=== PATIENT | female | born 1945 | race Caucasian/White ===

== ENCOUNTER → 2016-06-02 07:49 | Outpatient (CLI) | payer MEDICARE, OTHER ==
[2013-11-05 07:48] VITALS: BMI 28.9
[~2016-06-02 07:49] MED LIST: BAYER CHEWABLE81 MG PO; FISH OIL 1,0001 CA1 PO; HYDROCHLOROTHIA25 MG PO; PLAVIX75 MG PO; SYNTHROID100 MCG PO; ZOCOR20 MG PO
== END ==
LOC: D.MRI 07:49
DX: M25.562 Pain in left knee (principal)

== ENCOUNTER 2017-05-18 07:35 | Outpatient (CLI) | payer MEDICARE, OTHER ==
[~2017-05-18] VITALS: Ht 154.9 cm; Wt 65.9 kg
--- NOTE | ~2017-05-18 | HEMODYNAMI ---
PATIENT:SUZANNE MEEKS MEDICAL RECORD: [id number] : 41 LOCATION:[facility] ADMISSION DATE: 05/18/17 Generatedon:05/18/201710:05 Patient name: SUZANNE MEEKS Patient #: [id number] SSN: : 1945 Date of study: 05/18/2017 Page: Of Hemodynamic Procedure Report Patient Data Patient Demographics Procedure consent was obtained First Name: SUZANNE Gender: Female Last Name: JEANNA : 1945 [facility] Initial: J Age: 71 year(s) Patient #: [id number] Race: Unknown Additional ID: [id number] Contact details [address]: [address] [place] [address] State: [place] City: [place] Zip code: [address] Past Medical History Allergies Allergen Reaction Date Comments Reported Other allergy 05/18/2017 Statins Admission Admission Data Admission Date: 05/18/2017 Admission Time: 7:35 Procedure Procedure Types Cath Procedure Diagnostic Procedure Sedation Charges Moderate Sedation up to 30 minutes Peripheral Cath Diagnostic Procedure Cath Peripheral Iycne-Taczfbc-Hxj-Off Peripheral vascular Intervention Atherectomy Atherectomy Fem/Pop w/Plasty Procedure Description Procedure Date Procedure Date: 05/18/2017 Procedure Start Time: 9:31 Procedure End Time: 10:04 Procedure Staff Name Function King Gonzalez MD Performing Physician Nadja Wadsworth RT Monitor Seth Mauricio RN Nurse Sarah Pack RT Scrub Procedure Data Cath Procedure Fluoroscopy Diagnostic fluoroscopy Total fluoroscopy Time: 7.6 time: 7.6 min min Diagnostic fluoroscopy Total fluoroscopy dose: 242 dose: 242 mGy mGy Contrast Material Contrast Material Type Amount (ml) Isovue 300 159 Entry Location Entry Primary Successful Side Size Upsize Upsize Entry Closure Succes sful Closure Location (Fr) 1 (Fr) 2 (Fr) Remarks Device Remarks Femoral Right 5 Fr 7 Fr 7 Fr Exoseal artery Long Short Estimated blood loss: 10 ml Diagnostic catheters Device Type Used For End Catheter Placement DIAGNOSTIC UF 5Fr Procedure catheter ([id number]) Procedure Complications No complications Procedure Medications Medication Administration Route Dosage Oxygen NC 2 l/min Heparin Flush Bag added to field 2 bags (1000units/500ml NS) 0.9% NaCl I.V. 100 ml/hr Fentanyl I.V. 50 mcg Versed I.V. 1 mg Fentanyl I.V. 50 mcg Versed I.V. 1 mg Heparin Bolus I.V. 5000 units Integrilin (Bolus I.V. 6.2 ml 2mg/ml) Integrilin (Bolus wasted 3.8 ml 2mg/ml) Plavix P.O. 600 mg Hemodynamics Rest Heart Rate: 26 (bpm) Snapshots Pre Cath Intra NCS Post Cath Vital Signs Time Heart Resp SPO2 etCO2 NIBP (mmHg) Rhythm Pain Sedation Rate (ipm) (%) (mmHg) Status Level (bpm) 9:06:57 85 16 99 0 174/91(138) NSR 0 (11) 10(A) , No pain 9:11:17 86 15 99 0 180/95(143) NSR 0 (11) 10(A) , No pain 9:15:42 84 19 99 37.2 184/90(121) NSR 0 (11) 10(A) , No pain 9:20:00 89 16 90 35.8 169/94(128) NSR 0 (11) 10(A) , No pain 9:24:24 89 16 90 36.5 169/84(119) NSR 0 (11) 10(A) , No pain 9:28:42 87 16 100 36.5 156/89(125) NSR 0 (11) 10(A) , No pain 9:33:02 91 15 100 37.3 158/79(117) NSR 0 (11) 9(A) , No pain 9:37:18 88 16 100 39.5 159/84(130) NSR 0 (11) 9(A) , No pain 9:41:34 87 16 100 37.2 142/79(124) NSR 0 (11) 9(A) , No pain 9:45:46 90 15 100 36.5 157/82(113) NSR 0 (11) 9(A) , No pain 9:50:00 89 16 100 31.3 145/85(121) NSR 0 (11) 9(A) , No pain 9:54:14 86 16 100 37.2 158/82(123) NSR 0 (11) 9(A) , No pain 9:58:34 88 17 100 37.2 152/82(123) NSR 0 (11) 9(A) , No pain 10:02:50 84 16 100 36.5 160/83(129) NSR 0 (11) 9(A) , No pain Medications Time Medication Route Dose Verified Delivered Reason Notes Effectiveness by by 9:08:51 Oxygen NC 2 King Ann Per physician l/min Lisa Mauricio RN 9:08:58 Heparin Flush added 2 King Ann used for Bag to bags Lisa Mauricio RN procedure (1000units/500ml field NS) 9:09:06 0.9% NaCl I.V. 100 King Ann Per physician ml/hr Lisa Mauricio RN 9:26:12 Fentanyl I.V. 50 King Ann for sedation mcg Lisa Mauricio RN 9:26:18 Versed I.V. 1 mg King Ann for sedation Lisa Mauricio RN 9:28:58 Fentanyl I.V. 50 King Ann for sedation mcg Lisa Mauricio RN 9:29:03 Versed I.V. 1 mg King Ann for sedation Lisa Mauricio RN 9:37:55 Heparin Bolus I.V. 5000 King Ann for units Lisa Mauricio RN anticoagulation 9:38:08 Integrilin I.V. 6.2 King Ann for (Bolus 2mg/ml) ml Lisa Mauricio RN antiplatelet therapy 10:02:40 Integrilin wasted 3.8 King Ann for (Bolus 2mg/ml) ml Lisa Mauricio RN antiplatelet therapy 10:02:49 Plavix P.O. 600 King Ann for mg Lisa Mauricio RN antiplatelet therapy Procedure Log Time Note 8:51:27 Seth Mauricio RN sent for patient. Start room use. 8:55:53 Diagnostic Cath Status : Elective 8:56:28 Time tracking: Regular hours 8:56:32 Plan of Care:Hemodynamics will remain stable., Cardiac rhythm will remain stable., Comfort level will be maintained., Respiratory function will remain adequate., Patient/ family verbilizes understanding of procedure., Procedure tolerated without complication., Recovers from procedure without complications.. 9:05:49 Vital chart was started 9:06:14 Patient received from Pre/Post Procedure Room to CCL 2 Alert and oriented. Tansferred to table in Supine position. 9:06:15 Warm blankets applied, and carla hugger turned on for patient comfort. 9:06:15 Correct patient and procedure confirmed by team. 9:06:17 Signed procedure consent form obtained from patient. 9:06:18 ECG and BP/O2 sat monitors applied to patient. 9:06:19 Baseline sample Acquired. 9:06:20 Baseline sample Acquired. 9:06:26 Baseline sample Acquired. 9:06:30 Rhythm: sinus rhythm 9:06:32 Full Disclosure recording started 9:06:52 H&P Date Dictated: 05/07/2017 Within 30 days and on chart., H&P Addendum completed by physician on day of procedure. (MUST COMPLETE FOR ALL OUTPATIENTS). 9:06:57 Pre-procedure instructions explained to patient. 9:07:01 Pre-op teaching completed and patient verbalized understanding. 9:07:03 Family in waiting room. 9:07:05 Patient NPO since Midnight. 9:07:18 Patient allergic to Other allergyStatins 9:07:24 Is the patient allergic to Iodine/contrast media? No. 9:07:26 Was the patient premedicated? Yes 9:07:27 Is patient on blood thinner?No 9:07:29 Patient diabetic? No. 9:07:33 Snore? Yes 9:07:35 Sleep apnea? No 9:07:49 Dentures? Yes in tight 9:07:54 Patient pain scale 0/10 ?. 9:08:03 IV patent on arrival in left forearm with 0.9% NaCl at KVO. 9:08:08 Lab results completed and on chart. 9:08:14 Bilateral groins area was prepped with chlora-prep and draped in sterile fashion 9:08:16 Alarms reviewed by R. N. 9:08:17 Sharps counted by scrub and verified by R.N. 9:08:18 Physician paged 9:08:51 Oxygen 2 l/min NC was administered by Seth Mauricio RN; Per physician; 9:08:58 Heparin Flush Bag (1000units/500ml NS) 2 bags added to field was administered by Seth Mauricio RN; used for procedure; 9:09:06 0.9% NaCl 100 ml/hr I.V. was administered by Seth Mauricio RN; Per physician; 9::56 Physician arrived 9::57 --------ALL STOP TIME OUT------ 9::58 Final Timeout: patient, procedure, and site verified with staff and physician. All members of the team are in agreement. 9::03 Bilateral groins site verified by team. 9::07 Physical assessment completed. ASA score P 2 - A patient with mild systemic disease as per King Gonzalez MD. 9:26:11 Sedation plan: IV Moderate Sedation Medication:Versed, Fentanyl 9:26:12 Fentanyl 50 mcg I.V. was administered by Seth Mauricio RN; for sedation; 9::18 Versed 1 mg I.V. was administered by Seth Mauricio RN; for sedation; 9::58 Fentanyl 50 mcg I.V. was administered by Seth Mauricio RN; for sedation; 9:29:03 Versed 1 mg I.V. was administered by Seth Mauricio RN; for sedation; 9:29:52 Procedure started. 9:30:00 Use device set Femoral Dx 9:30:13 ACIST Syringe (80769) opened to sterile field. 9:30:13 Bag Decanter (2002S) opened to sterile field. 9:30:14 Medline Cath Pack ([id number]) opened to sterile field. 9:30:15 SHEATH 5FR [place] (SMN792) opened to sterile field. 9:30:16 DIAGNOSTIC WIRE .035 260cm J wire (291197) opened to sterile field. 9:30:17 ACIST Hand Control (41395) opened to sterile field. 9:30:17 ACIST Manifold (02128) opened to sterile field. 9:30:25 Tegaderm 4 x 4 (1626W) opened to sterile field. 9:30:26 PERCUTANEOUS ENTRY 19GA needle opened to sterile field. 9:31:27 Local anesthetic to right femoral artery with Lidocaine 2% by King Gonzalez MD.INITIAL ACCESS ONLY 9:31:48 A 5 Fr sheath was inserted into the Right Femoral artery 9:33:00 5fr UF inserted over the wire 9:33:02 Abdominal angiogram w/ runoff was performed. 9:33:05 Right leg runoff performed. 9:33:07 Left leg runoff performed. 9:33:16 A DIAGNOSTIC UF 5Fr catheter ([id number]) was advanced over the wire and used for Procedure. 9:37:55 Heparin Bolus 5000 units I.V. was administered by Seth Mauricio RN; for anticoagulation; 9:38:08 Integrilin (Bolus 2mg/ml) 6.2 ml I.V. was administered by Seth Mauricio RN; for antiplatelet therapy; 9:40:40 SHEATH 7FR [place] (UMX407) opened to sterile field. 9:40:45 SHEATH 7FR Destination (RSR04) opened to sterile field. 9:40:56 Sheath upsized to a 7 Fr Long. 9:41:00 GLIDE WIRE Super Stiff Angled 260cm (GP6396) opened to sterile field. 9:41:50 INFLATOR Merit BasixCompak (HX8504) opened to sterile field. 9:43:09 The LASER Turbo-Power 2.0 atherectomy catheter (658604) was advanced and then removed because 9:43:48 Multiple passes through left SFA. 9:48:49 Laser removed 9:49:01 CHOICE PT Extra Support J 300cm guide wire ([id number]) opened to sterile field. 9:54:23 Inflation number: 1 A Stellarex 6x120 drug coated balloon was prepped and advanced across the Mid Superficial Femoral, Left, then inflated to 13 SRUTHI for 2:30 (min:sec). 9:54:27 Timer 1 started at 9:51 AM, stopped at 9:54 AM, duration 00:02:47 sec. 9:57:10 Inflation number: 2 The Stellarex 6x120 drug coated balloon was reinflated across the Mid Superficial Femoral, Left, to 13 SRUTHI for 2:30 (min:sec). 9:57:12 Timer 1 started at 9:54 AM, stopped at 9:57 AM, duration 00:02:41 sec. 9:57:15 Timer 1 started at 9:57 AM, stopped at 9:57 AM, duration 00:00:01 sec. 9:58:21 Laser pass to Left Superficial Femoral with Fluence of 45 and Rate of 45. 9:58:30 Laser total pulses delivered: 3891 9:58:37 Laser total treatment time: 2 minutes 33 seconds 9:59:54 Balloon removed over the wire. 9:59:55 Wire removed. 10:00:10 EXOSEAL 7Fr (EX700) opened to sterile field. 10:00:30 Sheath upsized to a 7 Fr Short. 10:00:30 Sheath removed intact; hemostasis achieved with Exoseal to the Right Femoral artery. 10:00:34 Procedure ended.(Physican Out) 10:01:18 Fluoroscopy time 07.60 minutes. 10::34 Fluoroscopy dose: 242 mGy 10::34 Flurop Dose total: 242 10:01:39 Contrast amount:Isovue 300 159ml. 10:01:40 Sharps counted by scrub and verified by R.N. 10:01:51 Insertion/operative site no bleeding no hematoma. 10:02:02 Post-op/insertion site Right Femoral artery dressed using a 4 x 4 and Tegaderm. 10:02:04 Post Procedure Pulses reassessed and unchanged 10:02:08 Post-procedure physical assessment completed. ASA score P 2 - A patient with mild systemic disease as per King Gonzalez MD. 10:02:14 Post procedure rhythm: sinus rhythm 10:02:17 Estimated blood loss: 10 ml 10:02:19 Post procedure instruction explained to patient.Patient verbalizes understanding. 10:02:40 Integrilin (Bolus 2mg/ml) 3.8 ml wasted was administered by Seth Mauricio RN; for antiplatelet therapy; 10:02:49 Plavix 600 mg P.O. was administered by Seth Mauricio RN; for antiplatelet therapy; 10:03:30 Procedure type changed to Cath procedure, Diagnostic procedure, Sedation Charges, Moderate Sedation up to 30 minutes, Peripheral Cath Diagnostic Procedure, Cath Peripheral, Cznnc-Onvlbqr-Hes-Off, Peripheral vascular Intervention, Atherectomy, Atherectomy Fem/Pop w/Plasty 10:03:32 Procedure and supply charges have been captured, reviewed, submitted and are correct. 10:04:15 Procedure Complication : No complications 10:04:17 Vital chart was stopped 10:04:18 See physician's report for complete and final results. 10:04:23 Report given to Pre/Post Procedure Room. 10:04:25 Patient transfered to Pre/Post Procedure Room with Stretcher. 10:04:27 Procedure ended. 10:04:27 Full Disclosure recording stopped 10:04:32 End room use (Document Last) 10:05:11 ACC-PCI Only Patient was given prescriptions, or instructed by King Gonzalez MD to start/continue the following medications upon discharge: Plavix Intervention Summary Intervention Notes Time ActionType Lesion and Equipment Action# Pressure Duration Attributes Used 9:43:09 Discard LASER Balloon Turbo-Power 2.0 atherectomy catheter (090755) 9:54:23 Inflate Mid Stellarex 1 13 02:30 balloon Superficial 6x120 drug Femoral, coated Left balloon 9:57:10 Reinflate Mid Stellarex 2 13 02:30 balloon Superficial 6x120 drug Femoral, coated Left balloon Device Usage Item Name Manufacture Quantity Catalog Number Hospital Part Current Min imal Lot# / Charge Number Stock Stock Serial# Code ACIST Acist 1 56916 315291 553793 204623 20 Syringe Medical (83110) Systems Inc Bag Decanter Microtek 1 2001S 066218 48221 694807 5 (2001S) Medical Inc. Medline Cath Cardinal 1 [id number] 651537 75911 512936 5 Pack Health ([id number]) SHEATH 5FR Terumo 1 RVJ039 262598 980580 879045 40 [place] (HLP073) DIAGNOSTIC St Tiago 1 923010 609592 415670 187982 30 WIRE .035 260cm J wire (307439) ACIST Hand Acist 1 48128 035752 949484 121344 5 Control Medical (05089) Systems Inc ACIST Acist 1 81818 893839 477373 741442 5 Manifold Medical (08780) Systems Inc Tegaderm 4 x 3M 1 1626W 084240 983889 728758 5 4 (1626W) PERCUTANEOUS Cook Medical 1 B42452 368186 184722 5 ENTRY 19GA needle DIAGNOSTIC Cardinal 1 [id number] 881451 978828 193096 10 UF 5Fr Health catheter (616505I3) SHEATH 7FR Terumo 1 DAQ731 323426 039984 907216 5 [place] (BYG879) SHEATH 7FR Terumo 1 RSR04 818073 444526 917926 5 Destination (RSR04) GLIDE WIRE Terumo 1 VP8772 285626 228066 879149 5 Super Stiff Angled 260cm (FS6650) INFLATOR Merit 1 VA0122 425407 467646 762256 15 [facility] Medical BasixCompak (IA0807) LASER Ivet 1 420-050 479044 2894370 197712 5 [id number] 3DR Laboratories 2.0 (705707) atherectomy catheter (799721) CHOICE PT [place] 1 [id number] 294232 820968 200348 5 Extra Scientific Support J 300cm guide wire (1328147W7) Stellarex Unknown 1 0 0 6x120 drug coated balloon EXOSEAL 7Fr Cardinal 1 EX700 106294 190143 637668 5 (EX700) Health Signature Audit [place] Stage Time Signature Unsigned Intra-Procedure 05/18/2017 Nadja Wadsworth 10:05:26 AM RT(R) Signatures Monitor : Nadja Wadsworth Signature : RT Date : Time : [place] [address] [place] [address]
--- NOTE | ~2017-05-18 | OP ---
PATIENT NAME: SUZANNE MEEKS MEDICAL RECORD: [id number] :41 LOCATION:D.CAT ADMISSION DATE: SURGEON: RIAN SALAS MD DATE OF OPERATION: 05/18/2017 PROCEDURES: 1. Laser atherectomy left leg. 2. DRIER, left SFA. 3. Aortofemoral runoff. 4. Abdominal aortography. INDICATION: Claudication and peripheral vascular disease. PROCEDURE IN DETAIL: After informed consent was obtained and after detailed explanation of risks, benefits as well as alternative therapies, the patient elected to proceed with angiogram and angioplasty. The right femoral area was prepped and draped in normal sterile fashion. Right femoral artery was cannulated via modified Seldinger technique with placement of a 7-Eritrean knrbzv-mre-osyw sheath. All catheters exchanged through this sheath. FINDINGS: Abdominal aortography was performed. The catheter was pulled down for aortofemoral runoff. Abdominal aortography reveals no significant abdominal aortic disease. No dissection or aneurysm formation. RIGHT LEG: A. Iliac: The common internal and external iliacs have mild irregularities, but no flow-limiting stenosis. B. Femoral system: The common and deep femoral are widely patent. Superficial femoral has multiple areas of 80+ percent stenosis throughout the mid vessel. C. Popliteal and infrapopliteal vessels are widely patent with three-vessel runoff to the foot, although mildly diffusely diseased. LEFT LEG: A. Iliac: The common internal and external iliacs have mild irregularities, but no flow-limiting stenosis. B. Femoral system: The common and deep femoral are widely patent. Superficial femoral has previously placed stents. There is up to 80% in-stent restenosis in areas throughout the stented region. C. Popliteal and infrapopliteal vessels are patent, 3-vessel runoff to the foot is preserved, although mildly diffusely diseased. Laser atherectomy, DRIER of the left leg: Laser atherectomy was performed with a 2.0 laser peripheral catheter, multiple passes were made. We then used a Stellarex 6 x 120 drug-eluting balloon for PTCA and drug elution of this area. IMPRESSION: Successful DRIER with drug-eluting balloon and later atherectomy for in-stent restenosis of the left SFA going from multiple areas of 80% stenosis to 0% residual stenosis. TRANSINT:[id number] Voice Confirmation ID: [id number] DOCUMENT ID: [id number] OPERATIVE REPORT [id number] SUZANNE MEEKS, RIAN JONES at 1153 CC: [id number] DICTATION DATE: 05/18/17 1004 APPLICATION SECURITY DEVELOPER: 05/18/17 1026 [address] [place] [id number] [place] [id number]
[2017-05-18 07:43] VITALS: BP 166/74; Ht 154.9 cm; Wt 65.9 kg
[2017-05-18] MEDS ORDERED: PRAVACHOL20 MG PO (07:50)
[2017-05-18] MEDS ORDERED: NIASPAN500 MG PO (07:51)
[2017-05-18] MEDS ORDERED: CALCIUM 600+D T1 TA1 PO (07:51)
[2017-05-18 07:52] LABS: BASOPHILS 0.4 % (0-2); EOSINOPHILS 2.2 % (0-7); HEMATOCRIT 43.1 % (36.0-48.0); HEMOGLOBIN 14.3 g/dL (12-16); IMMATURE GRANULOCYTES 0.1 % (0-5); LYMPHOCYTES 20.4 % (15-50); MCH 30.2 pg (26.0-34.0); MCHC 33.2 g/dL (31.0-37.0); MCV 90.9 fL (80.0-100.0); MEAN PLATELET VOLUME 12.1 fL (7.4-10.4); MONOCYTES 10.8 % (2-11); NEUTROPHILS 66.1 % (40-80); PLATELET COUNT 197 10x3/uL (130-400); RBC 4.74 10x6/uL (4.00-5.40); RDW 13.2 % (11.5-14.5); WBC 7.2 10x3/uL (4.8-10.8)
[2017-05-18 08:08] LABS: ANION GAP 9.8 mmol/L (8-16); CALCIUM 9.3 mg/dL (8.5-10.1); CARBON DIOXIDE 30.6 mmol/L (21.0-32.0); CREATININE - SERUM 0.8 mg/dL (0.6-1.3); POTASSIUM - SERUM 3.4 mmol/L (3.5-5.1)
[2017-05-18] MEDS ORDERED: PLAVIX75 MG PO (13:08)
== END 2017-05-18 14:05 | disposition home or self-care (01) ==
LOC: D.CATH 07:35
PROVIDERS: Internal Medicine Interventional Cardiology
DX: I70.219 Atherosclerosis of native arteries of extremities with intermittent claudication, unspecified extremity (principal); I25.10 Atherosclerotic heart disease of native coronary artery without angina pectoris; I10 Essential (primary) hypertension; Z01.812 Encounter for preprocedural laboratory examination

== ENCOUNTER 2020-05-11 06:57 | Day surgery (SDC) | payer MEDICARE, OTHER ==
[~2020-05-11] VITALS: Ht 154.9 cm; Wt 65.9 kg
--- NOTE | ~2020-05-11 | HEMODYNAMI ---
PATIENT:SUZANNE MEEKS MEDICAL RECORD: [id number] : 41 LOCATION:D.CAT ADMISSION DATE: 05/11/20 Generatedon:110:41 Patient name: SUZANNE MEEKS Patient #: [id number] SSN: [id number] : 1945 Date of study: 05/11/2020 Page: Of Hemodynamic Procedure Report Patient Data Patient Demographics Procedure consent was obtained First Name: SUZANNE Gender: Female Last Name: JEANNA : 1945 Middle Initial: J Age: 74 year(s) Patient #: [id number] Race: SSN: [id number] Additional ID: [id number] Contact details [address]: [address] [place] [address] State: [place] City: [place] Zip code: [address] Past Medical History Allergies Allergen Reaction Date Comments Reported Other allergy 05/18/2017 Statins Other allergy 02/24/2020 STATINS Other allergy 05/11/2020 STATINS Admission Admission Data Admission Date: 05/11/2020 Admission Time: 6:57 Arrival Date: 05/11/2020 Arrival Time: 0:00 Admit Source: Other Insurance Payor: Medicare [facility] #: [id number] Height (in.): 61.5 BSA: 1.68 (m2) Height (cm.): 156.21 BMI: 27.88 (kg/m2) Weight (lbs.): 150 Weight (kg.): 68.04 Lab Results Lab Result Date: 05/11/2020 Lab Result Time: 0:00 Biochemistry Name Units Result Min Max BUN mg/dl 16 --(---*)-- 7 18 Creatinine mg/dl 0.9 --(-*--)-- 0.6 1.3 eGFR ml/min 64.51279 *-(----)-- 90 120 NONAFRICAN Procedure Procedure Types Cath Procedure Sedation Charges Moderate Sedation 55-69 minutes Peripheral Cath Diagnostic Procedure Peripheral vascular Intervention Hemochron ACT Lithotripsy Litho W Gardener Procedure Description Procedure Date Procedure Date: 05/11/2020 Procedure Start Time: 9:41 Procedure End Time: 10:39 Procedure Staff Name Function Eleazar Castillo MD Performing Physician Savanna Alvarez RT Monitor Sarah Pack RT Scrub Marek Al RN Nurse Procedure Data Cath Procedure Fluoroscopy Diagnostic fluoroscopy Total fluoroscopy Time: time: 10.6 min 10.6 min Diagnostic fluoroscopy Total fluoroscopy dose: 195 dose: 195 mGy mGy Contrast Material Contrast Material Type Amount (ml) Isovue 370 76 Entry Location Entry Primary Successful Side Size Upsize Upsize Entry Closure Succes sful Closure Location (Fr) 1 (Fr) 2 (Fr) Remarks Device Remarks Femoral Right 6 Fr 6 Fr 6 Fr Exoseal artery Short Long Short Estimated blood loss: 10 ml Diagnostic catheters Device Type Used For End Catheter Placement DIAGNOSTIC IM 5Fr Procedure catheter ([id number]) Procedure Complications No complications Procedure Medications Medication Administration Route Dosage 0.9% NaCl I.V. 100 ml/hr Oxygen etCO2 Nasal cannula 2 l/min Heparin Flush Bag added to field 2 bags (1000units/500ml NS) Lidocaine 2% added to field 20 Versed I.V. 2 mg Fentanyl I.V. 50 mcg Fentanyl I.V. 50 mcg Versed I.V. 1 mg Heparin Bolus I.V. 6000 units Versed I.V. 1 mg Versed I.V. 1 mg Plavix P.O. 600 mg Hemodynamics Rest BSA: 1.68 (m2) O2 Consumption: Estimated: 162.85 (ml/min) O2 Consumption indexed : Estimated:96.93 (ml/min/m) Heart Rate: 86 (bpm) Snapshots Pre Cath Intra NCS Post Cath Vital Signs Time Heart Resp SPO2 etCO2 NIBP (mmHg) Rhythm Pain Sedation Rate (ipm) (%) (mmHg) Status Level (bpm) 9:00:16 89 16 97 0 168/84(141) NSR 0 (11) 10(A) , No pain 9:04:38 84 15 100 36.4 158/77(127) NSR 0 (11) 10(A) , No pain 9:09:00 80 20 99 28.8 142/81(127) NSR 0 (11) 10(A) , No pain 9:13:20 81 13 99 32.5 140/75(112) NSR 0 (11) 10(A) , No pain 9:18:17 80 14 99 25 137/74(111) NSR 0 (11) 10(A) , No pain 9:22:29 78 16 99 16.6 126/75(106) NSR 0 (11) 10(A) , No pain 9:26:43 79 14 99 26.5 131/65(104) NSR 0 (11) 10(A) , No pain 9:30:59 78 17 98 29.5 132/70(111) NSR 0 (11) 10(A) , No pain 9:35:11 82 17 98 31.1 132/79(114) NSR 0 (11) 10(A) , No pain 9:39:25 76 13 98 26.5 113/66(87) NSR 0 (11) 10(A) , No pain 9:43:35 74 15 99 33.3 129/68(100) NSR 0 (11) 10(A) , No pain 9:47:49 77 13 98 30.3 116/66(98) NSR 0 (11) 10(A) , No pain 9:52:05 81 11 94 0 120/62(91) NSR 0 (11) 10(A) , No pain 9:56:17 79 15 94 0 111/58(85) NSR 0 (11) 10(A) , No pain 10:00:27 78 17 97 0 130/64(95) NSR 0 (11) 10(A) , No pain 10:04:43 108 15 98 36.3 146/78(118) NSR 0 (11) 10(A) , No pain 10:09:01 78 18 98 11.3 133/71(107) NSR 0 (11) 10(A) , No pain 10:13:19 91 16 98 15.9 145/73(106) NSR 0 (11) 10(A) , No pain 10:17:35 82 16 94 13.6 140/80(114) NSR 0 (11) 10(A) , No pain 10:21:51 80 19 96 35.6 138/70(108) NSR 0 (11) 10(A) , No pain 10:26:09 78 15 93 25 144/76(120) NSR 0 (11) 10(A) , No pain 10:30:27 81 14 93 18.9 128/70(104) NSR 0 (11) 10(A) , No pain 10:34:43 84 15 94 31.8 134/70(107) NSR 0 (11) 10(A) , No pain 10:39:01 80 15 92 28.8 132/70(100) NSR 0 (11) 10(A) , No pain Medications Time Medication Route Dose Verified Delivered Reason Notes Effectiveness by by 9:05:04 0.9% NaCl I.V. 100 Marek Marek Per physician ml/hr Mikaela Al RN RN 9:05:14 Oxygen etCO2 2 Marek Marek for low 02 sats Nasal l/min Mikaela Al cannula RN RN 9:05:24 Heparin Flush added 2 Marek Marek used for Bag to bags Mikaela Al procedure (1000units/500ml field RN RN NS) 9:05:35 Lidocaine 2% added 20ml Marek Marek for local to vial Mikaela Al anesthetic field RN RN 9:35:20 Versed I.V. 2 mg Marek Marek for sedation Mikaela Al RN RN 9:35:23 Fentanyl I.V. 50 Marek Marek for sedation mcg Mikaela Al RN RN 9:40:13 Fentanyl I.V. 50 Marek Marek for sedation mcg Mikaela Al RN RN 9:44:48 Versed I.V. 1 mg Marek Marek for sedation Mikaela Al RN RN 9:49:39 Heparin Bolus I.V. 6,000 Marek Marek for units Mikaela Al anticoagulation RN RN 10:05:17 Versed I.V. 1 mg Marek Marek for sedation Mikaela Al RN RN 10:21:02 Versed I.V. 1 mg Marek Marek for sedation Mikaela Al RN RN 10:36:53 Plavix P.O. 600 Marek Marek for mg Mikaela Al antiplatelet RN RN therapy Procedure Log Time Note 8:46:00 Marek Al RN sent for patient. Start room use. 8:46:12 Informed consent obtained and on chart 8:47:12 Arrival Date: 05/11/2020 12:00:00 AM 8:47:13 Admit Source: Other 8:47:17 Insurance Payor : Medicare 8:47:38 Patient Height : 61.5 inches 8:47:43 Patient Weight : 150 lbs 8:49:19 ACC Patient presents with Stable Angina CCS Anginal Class 2--Slight limitation of ordinary activity. 8:49:27 Procedure Status Peripheral. 8:49:30 Time tracking: Regular hours (M-F 7:00 - 5:00) 8:49:34 Plan of Care:Hemodynamics will remain stable., Cardiac rhythm will remain stable., Comfort level will be maintained., Respiratory function will remain adequate., Patient/ family verbilizes understanding of procedure., Procedure tolerated without complication., Recovers from procedure without complications.. 8:49:43 H&P Date Dictated: 04/22/2020 Within 30 days and on chart.. 8:49:44 Pre-procedure instructions explained to patient. 8:49:45 Pre-op teaching completed and patient verbalized understanding. 8:49:46 Family unavailable. 8:49:48 Patient NPO since Midnight. 8:50:02 Patient allergic to Other allergySTATINS 8:50:06 Alarms reviewed by R. N. 8:50:07 Sharps counted by scrub and verified by R.N. 8:50:12 Stress Test: no; N/A ? 8:51:18 Lab Result : BUN 16 mg/dl 8:51:18 Lab Result : Creatinine 0.9 mg/dl 8:51:18 Lab Result : eGFR NONAFRICAN 64.45155 ml/min 8:51:38 Patient received from Pre/Post Procedure Room to CCL 1 Alert and oriented. Tansferred to table in Supine position. 8:51:39 Warm blankets applied, and carla hugger turned on for patient comfort. 8:51:39 Correct patient and procedure confirmed by team. 8:51:40 ECG and BP/O2 sat monitors applied to patient. 8:51:44 Is the patient allergic to Iodine/contrast media? No. 8:51:58 Patient pain scale 0/10 ?. 8:52:04 Pre procedure: right dorsailis pedis pulse 1+ Palpable, but thready & weak; easily obliterated 8:52:09 IV patent on arrival in left antecubital with 0.9% NaCl at KVO. 8:52:13 Lab results completed and on chart. 8:58:55 Vital chart was started 8:58:57 Full Disclosure recording started 8:59:00 Baseline sample Acquired. 8:59:06 Rhythm: sinus rhythm 8:59:12 Was the patient premedicated? Yes 8:59:13 Is patient on blood thinner?No 8:59:14 Patient diabetic? No. 8:59:17 Patient not . Patient is over age 55. 8:59:18 ----Pre-sedation anethsthesia assessment.---- 8:59:21 Previous problem with sedation/anesthesia? No ? 8:59:22 Snore? Yes 8:59:24 Sleep apnea? Unknown 8:59:25 Deviated septum? No 8:59:28 Opens mouth fully? Yes 8:59:29 Sticks out tongue? Yes 8:59:32 Airway obstruction? Yes COPD 8:59:43 Dentures? Yes IN TIGHT 8:59:51 Bilateral groins area was prepped with chlora-prep and draped in sterile fashion 8:59:55 Use device set Femoral Dx 8:59:56 ACIST Syringe (64721) opened to sterile field. 8:59:57 Bag Decanter (2002S) opened to sterile field. 8:59:57 Medline Cath Pack ([id number]) opened to sterile field. 8:59:58 ACIST Hand Control (50921) opened to sterile field. 8:59:59 ACIST Manifold (57818) opened to sterile field. 8:59:59 DIAGNOSTIC Multipack 5Fr catheter set (ZP0173) opened to sterile field. 9:00:01 EMERALD Guide Wire (502-065) opened to sterile field. 9:00:09 SHEATH 6FR Dawson (NMW678) opened to sterile field. 9:00:28 INFLATOR Merit BasixCompak (CB9224) opened to sterile field. 9:00:29 TUBING High Pressure Extension Tubing (Castillo) ([id number]) opened to sterile field. 9:05:04 0.9% NaCl 100 ml/hr I.V. was administered by Marek Al RN; Per physician; Verbal order read back and verified. 9:05:14 Oxygen 2 l/min etCO2 Nasal cannula was administered by Marek Al RN; for low 02 sats; Verbal order read back and verified. 9:05:24 Heparin Flush Bag (1000units/500ml NS) 2 bags added to field was administered by Marek Al RN; used for procedure; Verbal order read back and verified. 9:05:35 Lidocaine 2% 20ml vial added to field was administered by Marek Al RN; for local anesthetic; Verbal order read back and verified. 9:34:52 --------ALL STOP TIME OUT------ 9:34:55 Final Timeout: patient, procedure, and site verified with staff and physician. All members of the team are in agreement. 9:34:58 Bilateral groins site verified by team. 9:35:00 Fire Safety Assessment: A--An alcohol-based skin anteseptic being used preoperatively., C--Open oxygen or nitrous oxide is being used., D--An ESU, laser, or fiber-optic light is being used. 9:35:03 Physical assessment completed. ASA score P 2 - A patient with mild systemic disease as per Eleazar Castillo MD. 9:35:07 2) 60-89 Mildly reduced kidney function, and other findings (as for stage 1) point to kidney disease. 9:35:09 Maximum allowable contrast dose (3.7 X eGFR X 0.75)178 ml. 9:35:12 Sedation plan: IV Moderate Sedation Medication:Versed, Fentanyl 9:35:20 Versed 2 mg I.V. was administered by Marek Al RN; for sedation; Verbal order read back and verified. 9:35:23 Fentanyl 50 mcg I.V. was administered by Marek Al RN; for sedation; Verbal order read back and verified. 9:40:13 Fentanyl 50 mcg I.V. was administered by Marek Al RN; for sedation; Verbal order read back and verified. 9:41:39 Procedure started. 9:41:45 Local anesthetic to left femerol artery with Lidocaine 2% by Eleazar Castillo MD.INITIAL ACCESS ONLY 9:42:24 Zero performed for pressure channel P1 9:43:51 A 6 Fr Short sheath was inserted into the Right Femoral artery 9:44:48 Versed 1 mg I.V. was administered by Marek Al RN; for sedation; Verbal order read back and verified. 9:45:13 SHEATH 6FR Destination (RSR01) opened to sterile field. 9:45:33 A DIAGNOSTIC IM 5Fr catheter ([id number]) was advanced over the wire and used for Procedure. 9:45:35 GLIDE WIRE Super Stiff Angled 260cm (LF3198) opened to sterile field. 9:45:40 A 5 FrFr IM catheter was inserted over the wire. 9:47:32 Sheath upsized to a 6 Fr Long. 9:49:39 Heparin Bolus 6,000 units I.V. was administered by Marek Al RN; for anticoagulation; Verbal order read back and verified. 9:53:27 Asahi Minamo 300cm wire opened to sterile field. 9:54:59 ASAHI MINAMO 300 wire advanced. 9:55:03 Wire advanced across lesion. 9:56:26 Procedure type changed to Cath procedure, Sedation Charges, Moderate Sedation 55-69 minutes, Peripheral Cath Diagnostic Procedure, Peripheral vascular Intervention, Hemochron ACT, Lithotripsy, Litho W Gardener 10:01:18 SHOCKWAVE BALLOON INSERTED. 10:03:05 Inflate balloon Inflation number: 1 A SHOCKWAVE BALLOON 6 X 60 ([id number]) was prepped and advanced across the Mid Superficial Femoral, Right , then inflated to 4 SRUTHI for 0:47 (min:sec) . 10:03:37 Inflation number: 2 The SHOCKWAVE BALLOON 6 X 60 ([id number]) was reinflated across the Mid Superficial Femoral, Right , to 4 SRUTHI for 0:26 (min:sec) . 10:05:17 Versed 1 mg I.V. was administered by Marek Al RN; for sedation; Verbal order read back and verified. 10:05:47 Inflation number: 3 The SHOCKWAVE BALLOON 6 X 60 ([id number]) was reinflated across the Mid Superficial Femoral, Right , to 4 SRUTHI for 1:06 (min:sec) . 10:10:09 Inflation number: 1 The SHOCKWAVE BALLOON 6 X 60 ([id number]) was reinflated across the Proximal Superficial Femoral, Right , to 4 SRUTHI for 1:07 (min:sec) . 10:11:34 Inflation number: 2 The SHOCKWAVE BALLOON 6 X 60 ([id number]) was reinflated across the Proximal Superficial Femoral, Right , to 4 SRUTHI for 0:43 (min:sec) . 10:14:21 Inflation number: 3 The SHOCKWAVE BALLOON 6 X 60 ([id number]) was reinflated across the Proximal Superficial Femoral, Right , to 4 SRUTHI for 0:51 (min:sec) . 10:14:54 Balloon removed over the wire. 10:21:02 Versed 1 mg I.V. was administered by Marek Al RN; for sedation; Verbal order read back and verified. 10:22:00 Balloon re-inserted over wire. 10:23:48 Inflation number: 4 The SHOCKWAVE BALLOON 6 X 60 ([id number]) was reinflated across the Proximal Superficial Femoral, Right , to 0 SRUTHI for 0:52 (min:sec) . 10:31:34 Balloon removed over the wire. 10:31:36 Wire removed. 10:31:38 Guide catheter removed. 10:31:58 Sheath upsized to a 6 Fr Short. 10:32:31 EXOSEAL 6Fr (EX600) opened to sterile field. 10:32:32 Tegaderm 4 x 4 (1626W) opened to sterile field. 10:32:41 Sheath removed intact; hemostasis achieved with Exoseal to the Right Femoral artery. 10:32:47 Fluoroscopy time 10.60 minutes. 10:32:51 Fluoroscopy dose: 195 mGy 10:32:51 Flurop Dose total: 195 10:32:57 Dose Area Product 26150 mGy/cm. 10:34:43 Post-op/insertion site Left Femoral artery dressed using a 4 x 4 and Tegaderm. 10:34:48 Post left femerol artery:stable, soft, clean and dry 10:34:51 Sharps counted by scrub and verified by R.N. 10:34:55 Maximum allowable dose exceeded? No. 10:35:01 Contrast amount:Isovue 370 76ml. 10:35:06 Procedure ended.(Physican Out) 10:35:16 Post Procedure Pulses reassessed and unchanged 10:35:19 Post procedure: right dorsailis pedis pulse 1+ Palpable, but thready & weak; easily obliterated. 10:35:22 Post-procedure physical assessment completed. ASA score P 2 - A patient with mild systemic disease as per Eleazar Castillo MD. 10:35:25 Post procedure rhythm: unchanged. 10:35:27 Estimated blood loss: 10 ml 10:35:30 Post procedure instruction explained to patient.Patient verbalizes understanding. 10:35:30 Patient needs reinforcement of post procedure teaching. 10:36:53 Plavix 600 mg P.O. was administered by Marek Al RN; for antiplatelet therapy; Verbal order read back and verified. 10:37:31 ACT drawn and resulted at 274 seconds. (normal therapeutic range 180-240 seconds). 10:38:54 Procedure and supply charges have been captured, reviewed, submitted and are correct. 10:38:58 Procedure Complication : No complications 10:39:05 AFRO Findings: PVD: TELESALES SUPERVISOR performed (see procedure notes) 10:39:07 Operative report dictated upon procedure completion. 10:39:07 See physician's report for complete and final results. 10:39:09 Report given to Pre/Post Procedure Room. 10:39:12 Patient transfered to Pre/Post Procedure Room with Stretcher. 10:39:14 Procedure ended. 10:39:14 Full Disclosure recording stopped 10:39:21 End room use (Document Last) 10:39:36 End room use (Document Last) 10:40:04 End room use (Document Last) 10:41:32 Vital chart was stopped Intervention Summary Intervention Notes Time ActionType Lesion and Equipment Used Action# Pressure Duration Attributes 10:03:05 Inflate Mid SHOCKWAVE BALLOON 1 4 00:47 balloon Superficial 6 X 60 Femoral, ([id number]) Right 10:03:37 Reinflate Mid SHOCKWAVE BALLOON 2 4 00:26 balloon Superficial 6 X 60 Femoral, ([id number]) Right 10:05:47 Reinflate Mid SHOCKWAVE BALLOON 3 4 01:07 balloon Superficial 6 X 60 Femoral, ([id number]) Right 10:10:09 Reinflate Proximal SHOCKWAVE BALLOON 1 4 01:07 balloon Superficial 6 X 60 Femoral, ([id number]) Right 10:11:34 Reinflate Proximal SHOCKWAVE BALLOON 2 4 00:43 balloon Superficial 6 X 60 Femoral, ([id number]) Right 10:14:21 Reinflate Proximal SHOCKWAVE BALLOON 3 4 00:51 balloon Superficial 6 X 60 Femoral, ([id number]) Right 10:23:48 Reinflate Proximal SHOCKWAVE BALLOON 4 0 00:52 balloon Superficial 6 X 60 Femoral, ([id number]) Right Device Usage Item Name Manufacture Quantity Catalog Number Hospital Part Curr ent Minimal Lot# / Charge Number Stock Stock Serial# Code ACIST Syringe Acist 1 73409 971545 399543 1666 08 20 (05545) [employer] Bag Decanter Microtek 1 451533 03215 9830 99 5 () Medical Inc. Medline Cath Pack Medline 1 [id number] 090633 59890 9855 17 5 ([id number]) ACIST Hand Acist 1 15789 039800 238006 3134 39 5 Control (20949) [employer] ACIST Manifold Acist 1 38969 480740 355902 6862 54 5 (57163) [employer] DIAGNOSTIC Cardinal 1 LI0168 746174 62944 9929 92 30 Multipack 5Fr Health catheter set (QZ8301) EMERALD Guide Cardinal 1 502-455 099296 694513 0105 88 5 Wire (502-455) Health SHEATH 6FR Terumo 1 UQJ100 584625 108068 5818 59 40 Dawson (FAJ110) INFLATOR Merit Merit 1 QS7743 670906 145959 0610 64 15 BasixCompak Medical (IM6871) TUBING High Merit 1 [id number] 975841 03889 9989 48 10 Pressure Medical Extension Tubing (Castillo) (QF8946B) DIAGNOSTIC IM 5Fr Cardinal 1 [id number] 930678 556172 0024 62 5 catheter Health (408037A) SHEATH 6FR Terumo 1 RSR01 703290 28698 9994 38 5 Destination (RSR01) GLIDE WIRE Super Terumo 1 YD5465 867447 851403 8152 70 5 Stiff Angled 260cm (XF1137) Renate Chaney Merged With [facility] Inte 1 [id number] 314144 0111417 1099 49 0 300cm wire SHOCKWAVE BALLOON SHOCKWAVE 1 [id number] 005604 4578453 9999 94 1 6 X 60 MEDICAL ([id number]) EXOSEAL 6Fr Cardinal 1 EX600 109431 875252 2634 75 10 (EX600) Health Tegaderm 4 x 4 3M 1 1626W 865411 905375 7588 21 5 (1626W) Signature Audit [place] Stage Time Signature Unsigned Intra-Procedure 05/11/2020 Savanna Alvarez 10:39:36 AM RT(R) Intra-Procedure 05/11/2020 Marek 10:40:04 AM Mikaela LLAMAS Intra-Procedure 05/11/2020 Eleazar Castillo MD 10:41:31 AM [facility] [address] [place] [address]
[~2020-05-11 06:57] MED LIST changes: +CALCIUM 600+D T1 TA1 PO; +ERGOCALCIF50000 UNIT PO; +NIASPAN500 MG PO; +PRAVACHOL20 MG PO; +VITAMIN D31250 MCG PO
[2020-05-11 08:23] VITALS: BP 184/70; Ht 154.9 cm; Wt 65.9 kg
[2020-05-11 08:46] LABS: ANION GAP 10.4 mmol/L (8-16); CALCIUM 9.2 mg/dL (8.5-10.1); CARBON DIOXIDE 29.2 mmol/L (21.0-32.0); CREATININE - SERUM 0.9 mg/dL (0.6-1.3); POTASSIUM - SERUM 3.6 mmol/L (3.5-5.1)
[2020-05-11 09:33] LABS: BASOPHILS 0.3 % (0-2); EOSINOPHILS 2.3 % (0-7); HEMATOCRIT 41.6 % (36.0-48.0); HEMOGLOBIN 13.9 g/dL (12-16); IMMATURE GRANULOCYTES 0.3 % (0-5); LYMPHOCYTE ABS# 1.33 10x3/uL (1.18-3.74); LYMPHOCYTES 19.1 % (15-50); MCH 30.2 pg (26.0-34.0); MCHC 33.4 g/dL (31.0-37.0); MCV 90.2 fL (80.0-100.0); MEAN PLATELET VOLUME 11.9 fL (7.4-10.4); MONOCYTES 11.8 % (2-11); NEUTROPHIL ABS# 4.62 10x3/uL (1.56-6.13); NEUTROPHILS 66.2 % (40-80); PLATELET COUNT 209 10x3/uL (130-400); RBC 4.61 10x6/uL (4.00-5.40); RDW 13.3 % (11.5-14.5)
--- NOTE | 2020-05-11 10:50 | NUR ---
PT RECEIVED VIA STRETCHER BACK TO ROOM 6 FOR RECOVERY. PT DROWSY BUT VERBALLY AROUSABLE. PT C/O PAIN IN R UPPER OUTER THIGH AND LEG. THIS IS CHRONIC PROBLEM WILL CONTINUE TO MONITOR. IV PATENT INFUSING VIA ORDERS TO L HAND. L GROIN SOFT, LG TEGADERM DRESSING IN PLACE, NO S/S HEMATOMA OR BLEEDING NOTED. LEG PINK AND WARM, PULSES AUDIBLE W DOPPLER. PT INSTRUCTED TO KEEP HEAD ON PILLOW AND LEG STRAIGHT, SHE VERBALIZED UNDERSTANDING. DR JACKSON AT , ORDERS RECEIVED FOR PAIN MEDICATION. CALL LIGHT IN REACH. PT PLACED ON CARDIAC MONITORS AND O2 VIA NC AT 2L/NC.
--- NOTE | 2020-05-11 11:12 | NUR ---
NORCO 5MG GIVEN PO PER ORDERS. L GROIN SOFT, DRESSING REMAINS CDI NO S/S HEMATOMA OR BLEEDING NOTED. VSS AT PRESENT. CALL LIGHT IN REACH. PT DENIES OTHER NEEDS AT THIS TIME.
[2020-05-11] MEDS ORDERED: PLAVIX75 MG PO (11:50)
[2020-05-11] MEDS ORDERED: ASPIRIN EC81 MG PO (11:51)
--- NOTE | 2020-05-11 12:00 | NUR ---
PT RESTING COMFORTABLY, STATES PAIN IS MUCH BETTER IN LEG. VSS AT PRESENT. L GROIN SOFT, DRESSING CDI NO S/S HEMATOMA OR BLEEDING NOTED CALL LIGHT IN REACH
--- NOTE | 2020-05-11 12:30 | NUR ---
L GROIN SOFT, DRESSING CDI NO S/S HEMATOMA OR BLEEDING NOTED. CALL LIGHT IN REACH, PT TOLERATING PO FLUIDS. PT DENIES PAIN OR NEEDS AT THIS TIME.
--- NOTE | 2020-05-11 13:00 | NUR ---
PT RESTING W/O COMPLAINTS. L GROIN SOFT, NO S/S HEMTOMA OR BLEEDING. CL IN REACH. VSS AT PRESENT.
--- NOTE | 2020-05-11 13:30 | NUR ---
L GROIN SOFT, DRESSING CDI NO S/S HEMATOMA OR BLEEDING. HOB ELEVATED SLIGHTLY, SANDWICH AND DRINK SERVED. VSS. O2 REMOVED, SAT 96 ON ROOM AIR. NO OTHER NEEDS REQUESTED.
--- NOTE | 2020-05-11 14:05 | NUR ---
L GROIN SOFT, DRESSING CDI NO S/S HEMATOMA OR BLEEDING NOTED. DISCHARGE INSTRUCTIONS REVIEWED W PT, SHE VERBALIZED UNDERSTANDING. EXPLAINED IMPORTANCE OF GETTING PLAVIX FILLED AND STARTING TOMORROW.
--- NOTE | 2020-05-11 14:22 | NUR ---
IV REMOVED W CATH INTACT, MONITORS REMOVED. PT UP TO DRESS FOR DISCHARGE. PT AMBULABED TO BR, VOIDING W/O DIFFICULITY.
--- NOTE | 2020-05-11 14:30 | NUR ---
PT DISCHARGED VIA WC TO WAITING IN PRIVATE VEHICLE. PT HAD ALL BELONGINGS AND DISCHARGE PAPERWORK IN HAND
== END 2020-05-11 14:30 | disposition home or self-care (01) ==
LOC: D.CATH 06:57
PROVIDERS: ATTEND Internal Medicine Cardiovascular Disease
DX: I70.211 Atherosclerosis of native arteries of extremities with intermittent claudication, right leg (principal); I10 Essential (primary) hypertension; E78.5 Hyperlipidemia, unspecified; I25.10 Atherosclerotic heart disease of native coronary artery without angina pectoris; J44.9 Chronic obstructive pulmonary disease, unspecified